=== PATIENT | male | born 1995 | race Caucasian/White ===

== ENCOUNTER 2020-10-03 16:51 | Outpatient (CLI) | payer BC, SELFPAY ==
--- NOTE | ~2020-10-03 | XR_ITS ---
XR lumbar spine 2-3V DATE: 10/03/2020 17:05 INDICATION: Back pain, lower abdominal pain and groin pain. No injury. TECHNIQUE: AP, lateral, coned lateral lumbosacral views COMPARISON: None FINDINGS: The lumbar vertebrae are normally aligned. No fracture or bone destruction is evident. The lumbar pedicles are intact. No spondylolisthesis. The lumbar and lumbosacral interspaces are well pre served. The sacroiliac joints appear normal. There is a prominent amount of fecal material in the right colon. IMPRESSION: Negative lumbar spine Reviewed, dictated and finalized at location B. [employer] IMPRESSION: Negative lumbar spine
== END 2020-10-03 16:52 | disposition home or self-care (01) ==
LOC: ANHIMG 16:54
PROVIDERS: PCP Family Medicine; Visit Provider Family Medicine
DX: R10.30 Lower abdominal pain, unspecified (principal)
CPT/HCPCS: 72100